=== PATIENT | female | born 1950 | race Asian ===

== ENCOUNTER 2017-07-22 23:50 | Emergency (ER) | payer MEDICAID, MEDICARE ==
[~2017-07-22] VITALS: Ht 142.2 cm; Wt 70.0 kg
[2017-07-23] MEDS ORDERED: SODIUM CHLORIDE 0.9% 1,000ML IVBOLUS ONE (00:30)
[2017-07-23 01:02] LABS: BASOPHILS # (AUTO) 0.06 x10^3/uL (0-0.1); BASOPHILS % (AUTO) 1 % (0-1); EOSINOPHILS # (AUTO) 0.15 x10^3/uL (0-0.4); EOSINOPHILS % (AUTO) 2 % (1-7); LYMPHOCYTES # (AUTO) 2.47 x10^3/uL (1-3.4); LYMPHOCYTES % (AUTO) 30 % (22-44); MD NO; MEAN CORPUSCULAR HEMOGLOBIN 27.6 pg (27.0-34.8); MEAN CORPUSCULAR HGB CONC 32.4 g/dL (32.4-35.8); MEAN PLATELET VOLUME 7.8 fL (7.4-10.4); MONOCYTES # (AUTO) 0.56 x10^3/uL (0.2-0.8); MONOCYTES % (AUTO) 7 % (2-9); NEUTROPHILS # (AUTO) 4.88 x10^3/uL (1.8-6.8); NEUTROPHILS % (AUTO) 60 % (42-75); PLATELET COUNT 278 x10^3/uL (130-400); RED BLOOD COUNT 3.72 x10^6/uL (3.82-5.3)
[2017-07-23 01:13] LABS: ALANINE AMINOTRANSFERASE 18 U/L (12-78); ALBUMIN 3.4 g/dL (3.4-5.0); ANION GAP 8 mmol/L (5-15); CALCIUM 9.4 mg/dL (8.5-10.1); CHLORIDE 95 mmol/L (98-107); CREATININE 1.09 mg/dL (0.55-1.02)
[2017-07-23 01:18] LABS: ALKALINE PHOSPHATASE 138 U/L (45-117); BILIRUBIN,TOTAL 0.2 mg/dL (0.2-1.0); TOTAL PROTEIN 8.8 g/dL (6.4-8.2); TROPONIN I < 0.015 ng/mL (0.000-0.045)
[2017-07-23 01:23] LABS: THYROID STIMULATING HORMONE 0.516 mIU/L (0.358-3.740)
[2017-07-23 01:30] LABS: MICROSCOPIC NOT IND
[2017-07-23 01:33] LABS: CULTURE INDICATED? NO
[2017-07-23 02:20] VITALS: BP 165/71
[2017-07-23] MEDS ORDERED: GLIP10TA13 PO (11:12)
[2017-07-23] MEDS ORDERED: OXYC10TA6 PO (11:12)
[2017-07-23] MEDS ORDERED: LISI1TAB3 PO (11:12)
== END 2017-07-23 02:28 | disposition home or self-care (01) ==
LOC: ED 23:59
DX: R42 Dizziness and giddiness (principal); E11.65 Type 2 diabetes mellitus with hyperglycemia; E78.00 Pure hypercholesterolemia, unspecified; I10 Essential (primary) hypertension
CPT/HCPCS: 36415; 70450; 71045; 80053; 81003; 82962; 84443; 84484; 85025; 93005; 96360; 99285; J7030

== ENCOUNTER 2017-07-23 09:07 | Inpatient (IN) | payer MEDICARE, MEDICAID ==
[~2017-07-23] VITALS: Ht 142.2 cm; Wt 80.1 kg
[2017-07-23] MEDS ORDERED: SODIUM CHLORIDE 0.9% 1,000 ML IV ONE ×2 (10:04→12:05)
[2017-07-23] MEDS ORDERED: PROMETHAZINE 25 MG/ML, 1ML ONE (10:22)
[2017-07-23 10:24] LABS: BASOPHILS # (AUTO) 0.01 x10^3/uL (0-0.1); BASOPHILS % (AUTO) 0 % (0-1); EOSINOPHILS # (AUTO) 0.03 x10^3/uL (0-0.4); EOSINOPHILS % (AUTO) 0 % (1-7); LYMPHOCYTES # (AUTO) 1.92 x10^3/uL (1-3.4); LYMPHOCYTES % (AUTO) 22 % (22-44); MD NO; MEAN CORPUSCULAR HEMOGLOBIN 28.4 pg (27.0-34.8); MEAN CORPUSCULAR HGB CONC 33.5 g/dL (32.4-35.8); MEAN CORPUSCULAR VOLUME 84.8 fL (80-100); MEAN PLATELET VOLUME 7.7 fL (7.4-10.4); MONOCYTES % (AUTO) 5 % (2-9); NEUTROPHILS # (AUTO) 6.34 x10^3/uL (1.8-6.8); NEUTROPHILS % (AUTO) 73 % (42-75); PLATELET COUNT 270 x10^3/uL (130-400); RED BLOOD COUNT 3.65 x10^6/uL (3.82-5.3); RED CELL DISTRIBUTION WIDTH 13.8 % (9.6-15.2)
[2017-07-23] MEDS ORDERED: SODIUM CHLORIDE FLUSH 10ML SYR IVF ONE (10:30)
[2017-07-23] MEDS ORDERED: PROMETHAZINE 25 MG/ML, 1ML IM ONE (10:30)
[2017-07-23] MEDS ORDERED: SODIUM CHLORIDE 0.9% 1,000ML IVBOLUS ONE (10:30)
[2017-07-23 10:32] LABS: ACETONE, SERUM Negative (Negative)
[2017-07-23 10:37] LABS: ALANINE AMINOTRANSFERASE 18 U/L (12-78); ALBUMIN 3.2 g/dL (3.4-5.0); ANION GAP 9 mmol/L (5-15); CALCIUM 9.1 mg/dL (8.5-10.1); CHLORIDE 99 mmol/L (98-107); CREATININE 0.85 mg/dL (0.55-1.02)
[2017-07-23 10:41] LABS: ALKALINE PHOSPHATASE 128 U/L (45-117); BILIRUBIN,TOTAL 0.3 mg/dL (0.2-1.0); TOTAL PROTEIN 8.5 g/dL (6.4-8.2); TROPONIN I < 0.015 ng/mL (0.000-0.045)
[2017-07-23] MEDS ORDERED: ZIPRASIDONE 20 MG INJ IM ONE ×2 (11:05→11:30)
[2017-07-23] MEDS ORDERED: OXYC10TA6 PO (11:12)
[2017-07-23] MEDS ORDERED: LISI1TAB3 PO (11:12)
[2017-07-23] MEDS ORDERED: GLIP10TA13 PO (11:12)
[2017-07-23 11:14] LABS: MICROSCOPIC AUTO
[2017-07-23 11:17] LABS: CULTURE INDICATED? YES
[2017-07-23] MEDS ORDERED: KETOROLAC 30 MG/1 ML IVPush ONE (11:30)
[2017-07-23] MEDS: SODIUM CHLORIDE 0.9% 1,000 ML IV SCH ×2 (12:21→20:57)
[2017-07-23] MEDS ORDERED: LABETALOL 5MG/ML, 20ML IVPush PRN (12:30)
[2017-07-23] MEDS ORDERED: ONDANSETRON 2MG/ML, 2ML IVPush PRN (12:30)
[2017-07-23] MEDS ORDERED: SODIUM CHLORIDE FLUSH 10ML SYR IVF PRN (12:30)
[2017-07-23] MEDS ORDERED: ONDANSETRON ODT 4 MG PO PRN (12:30)
[2017-07-23] MEDS ORDERED: POLYETHYLENE GLYCOL 17 GM PACKET PO PRN (12:30)
[2017-07-23] MEDS: ENOXAPARIN 40 MG/0.4 ML SQ SCH (13:00)
[2017-07-23 13:02] LABS: D-DIMER 0.56 ug/mlFEU (0.00-0.52); INTERNATIONAL NORMALIZED RATIO 0.96 (0.93-1.1)
[2017-07-23 13:17] LABS: FREE T4 (FREE THYROXINE) 1.39 ng/dL (0.76-1.46); THYROID STIMULATING HORMONE 0.319 mIU/L (0.358-3.740)
[2017-07-23 14:58] VITALS: BP 165/83
[2017-07-23] MEDS: LORazepam 0.5MG TABLET PO PRN ×2 (15:17→20:55)
[2017-07-23] MEDS ORDERED: INSULIN LISPRO 100 UNITS/ML, PEN SQ-INSULIN SCH (16:00)
[2017-07-23] MEDS: INSULIN LISPRO 100 UNITS/ML, PEN SQ-INSULIN SCH ×2 (18:00→20:57)
[2017-07-23] MEDS ORDERED: OMNIPAQUE 350 MG/ML, 100ML BOTTLE ONE (18:26)
[2017-07-23] MEDS: ACETAMINOPHEN 325 MG TABLET PO PRN (19:31)
[2017-07-23 20:00] VITALS: BP 133/65
[2017-07-23] MEDS: INSULIN GLARGINE 100 UNITS/ML, PEN SQ-INSULIN SCH ×2 (20:56→20:59)
[2017-07-23] MEDS: OXYcodone IR 5MG TABLET PO PRN (22:37)
[2017-07-24] VITALS (10 sets, daily range): BP systolic 96–150; BP diastolic 56–84
[2017-07-24] MEDS: SODIUM CHLORIDE 0.9% 1,000 ML IV SCH ×2 (04:33→16:39)
[2017-07-24 05:42] LABS: BASOPHILS # (AUTO) 0.03 x10^3/uL (0-0.1); BASOPHILS % (AUTO) 0 % (0-1); EOSINOPHILS # (AUTO) 0.11 x10^3/uL (0-0.4); EOSINOPHILS % (AUTO) 2 % (1-7); LYMPHOCYTES # (AUTO) 2.59 x10^3/uL (1-3.4); LYMPHOCYTES % (AUTO) 36 % (22-44); MD NO; MEAN CORPUSCULAR HEMOGLOBIN 28.1 pg (27.0-34.8); MEAN PLATELET VOLUME 7.5 fL (7.4-10.4); MONOCYTES # (AUTO) 0.47 x10^3/uL (0.2-0.8); MONOCYTES % (AUTO) 6 % (2-9); NEUTROPHILS # (AUTO) 4.09 x10^3/uL (1.8-6.8); NEUTROPHILS % (AUTO) 56 % (42-75); PLATELET COUNT 248 x10^3/uL (130-400); RED BLOOD COUNT 3.45 x10^6/uL (3.82-5.3); RED CELL DISTRIBUTION WIDTH 14.2 % (9.6-15.2)
[2017-07-24 05:52] LABS: ALANINE AMINOTRANSFERASE 18 U/L (12-78); ALKALINE PHOSPHATASE 111 U/L (45-117); CHOL/HDL RATIO 4.2; CHOLESTEROL, TOTAL 161 mg/dL (140-239); CREATININE 0.91 mg/dL (0.55-1.02); HDL CHOL % 24 % (28-40); HDL CHOLESTEROL (DIRECT) 38 mg/dL (40-60); LDL CHOLESTEROL,CALCULATED 88 mg/dL (54-169); LDL/HDL RATIO 2.3 (0.5-3.0); TOTAL PROTEIN 7.6 g/dL (6.4-8.2); TRIGLYCERIDES 175 mg/dL (50-200); VLDL CHOLESTEROL 35 mg/dL (0-25)
[2017-07-24 06:01] LABS: ALBUMIN 2.9 g/dL (3.4-5.0); ANION GAP 9 mmol/L (5-15); CALCIUM 8.8 mg/dL (8.5-10.1); CHLORIDE 107 mmol/L (98-107)
[2017-07-24 06:03] LABS: BILIRUBIN,TOTAL 0.3 mg/dL (0.2-1.0)
[2017-07-24] MEDS ORDERED: MAGNESIUM SULFATE PMX 4GM/100M 100 ML IV ONE (07:30)
[2017-07-24] MEDS: INSULIN LISPRO 100 UNITS/ML, PEN SQ-INSULIN SCH ×4 (08:36→21:12)
[2017-07-24] MEDS: SENNA/DOCUSATE TABLET PO SCH (09:08)
[2017-07-24] MEDS: LISINOPRIL 10 MG TABLET PO SCH (09:08)
[2017-07-24] MEDS: HYDROCHLOROTHIAZIDE 12.5 MG CAPSULE PO SCH (09:08)
[2017-07-24] MEDS: OXYcodone IR 5MG TABLET PO PRN ×2 (10:53→21:10)
[2017-07-24 12:30] LABS: % IRON SATURATION 14 % (20-55); IRON LEVEL 51 mcg/dL (50-170); TOTAL IRON BINDING CAPACITY 364 mcg/dL (250-450)
[2017-07-24] MEDS: ENOXAPARIN 40 MG/0.4 ML SQ SCH (12:43)
[2017-07-24] MEDS: CEFTRIAXONE PMX 2GM/50ML 50 ML IV SCH (12:43)
[2017-07-24] MEDS: DOXYCYCLINE 100MG TABLET PO SCH ×2 (12:44→21:10)
[2017-07-24 12:56] LABS: FOLATE LEVEL > 20.0 ng/mL (3.1-17.5)
[2017-07-24] MEDS: INSULIN GLARGINE 100 UNITS/ML, PEN SQ-INSULIN SCH (21:11)
[2017-07-25] VITALS (7 sets, daily range): BP systolic 111–148; BP diastolic 68–84
[2017-07-25] MEDS: SODIUM CHLORIDE 0.9% 1,000 ML IV SCH ×3 (00:09→16:24)
[2017-07-25] MEDS: ACETAMINOPHEN 325 MG TABLET PO PRN ×2 (00:55→16:21)
[2017-07-25] MEDS: LORazepam 0.5MG TABLET PO PRN ×2 (02:55→21:57)
[2017-07-25 05:49] LABS: BASOPHILS # (AUTO) 0.03 x10^3/uL (0-0.1); BASOPHILS % (AUTO) 0 % (0-1); EOSINOPHILS # (AUTO) 0.24 x10^3/uL (0-0.4); EOSINOPHILS % (AUTO) 3 % (1-7); LYMPHOCYTES # (AUTO) 2.95 x10^3/uL (1-3.4); LYMPHOCYTES % (AUTO) 39 % (22-44); MD NO; MEAN CORPUSCULAR HGB CONC 34.1 g/dL (32.4-35.8); MEAN CORPUSCULAR VOLUME 85.2 fL (80-100); MEAN PLATELET VOLUME 7.4 fL (7.4-10.4); MONOCYTES # (AUTO) 0.52 x10^3/uL (0.2-0.8); MONOCYTES % (AUTO) 7 % (2-9); NEUTROPHILS # (AUTO) 3.84 x10^3/uL (1.8-6.8); NEUTROPHILS % (AUTO) 51 % (42-75); PLATELET COUNT 218 x10^3/uL (130-400); RED BLOOD COUNT 3.19 x10^6/uL (3.82-5.3); RED CELL DISTRIBUTION WIDTH 14.9 % (9.6-15.2)
[2017-07-25 05:59] LABS: ALBUMIN 2.8 g/dL (3.4-5.0); CHLORIDE 108 mmol/L (98-107)
[2017-07-25 06:05] LABS: ALANINE AMINOTRANSFERASE 16 U/L (12-78); ALKALINE PHOSPHATASE 94 U/L (45-117); ANION GAP 6 mmol/L (5-15); BILIRUBIN,TOTAL 0.4 mg/dL (0.2-1.0); CALCIUM 8.5 mg/dL (8.5-10.1); CREATININE 0.79 mg/dL (0.55-1.02); TOTAL PROTEIN 7.2 g/dL (6.4-8.2)
[2017-07-25] MEDS ORDERED: IRON SUCROSE COMPLEX 100MG/5ML IV ONE (08:30)
[2017-07-25] MEDS: INSULIN LISPRO 100 UNITS/ML, PEN SQ-INSULIN SCH ×4 (09:05→20:14)
[2017-07-25] MEDS: INSULIN GLARGINE 100 UNITS/ML, PEN SQ-INSULIN SCH (09:05)
[2017-07-25] MEDS: HYDROCHLOROTHIAZIDE 12.5 MG CAPSULE PO SCH (09:18)
[2017-07-25] MEDS: DOXYCYCLINE 100MG TABLET PO SCH ×2 (09:18→20:13)
[2017-07-25] MEDS: LISINOPRIL 10 MG TABLET PO SCH (09:18)
[2017-07-25] MEDS: SENNA/DOCUSATE TABLET PO SCH (09:19)
[2017-07-25] MEDS: OXYcodone IR 5MG TABLET PO PRN (10:50)
[2017-07-25] MEDS: CEFTRIAXONE PMX 2GM/50ML 50 ML IV SCH (10:50)
[2017-07-25] MEDS: ENOXAPARIN 40 MG/0.4 ML SQ SCH (14:15)
[2017-07-25] MEDS ORDERED: INSULIN GLARGINE 100 UNITS/ML, PEN SQ-INSULIN SCH (21:00)
[2017-07-26] MEDS: SODIUM CHLORIDE 0.9% 1,000 ML IV SCH (00:11)
[2017-07-26] MEDS: OXYcodone IR 5MG TABLET PO PRN ×2 (00:11→09:24)
[2017-07-26 00:15] VITALS: BP 131/79
[2017-07-26] MEDS ORDERED: INSU100I13 SQ-INSULIN ×2 (06:21)
[2017-07-26] MEDS ORDERED: CEFD300C37 PO (06:21)
[2017-07-26] MEDS ORDERED: DOXY100T PO (06:22)
[2017-07-26 07:06] VITALS: BP 126/78
[2017-07-26 07:31] LABS: BASOPHILS % (AUTO) 0 % (0-1); EOSINOPHILS # (AUTO) 0.18 x10^3/uL (0-0.4); EOSINOPHILS % (AUTO) 3 % (1-7); LYMPHOCYTES % (AUTO) 34 % (22-44); MD NO; MEAN CORPUSCULAR HEMOGLOBIN 27.5 pg (27.0-34.8); MEAN CORPUSCULAR HGB CONC 32.4 g/dL (32.4-35.8); MEAN CORPUSCULAR VOLUME 84.7 fL (80-100); MEAN PLATELET VOLUME 7.3 fL (7.4-10.4); MONOCYTES # (AUTO) 0.43 x10^3/uL (0.2-0.8); MONOCYTES % (AUTO) 6 % (2-9); NEUTROPHILS # (AUTO) 4.21 x10^3/uL (1.8-6.8); NEUTROPHILS % (AUTO) 58 % (42-75); PLATELET COUNT 227 x10^3/uL (130-400); RED BLOOD COUNT 3.31 x10^6/uL (3.82-5.3); RED CELL DISTRIBUTION WIDTH 14.4 % (9.6-15.2)
[2017-07-26 07:40] LABS: ALBUMIN 2.8 g/dL (3.4-5.0); ANION GAP 9 mmol/L (5-15); CALCIUM 8.5 mg/dL (8.5-10.1); CHLORIDE 106 mmol/L (98-107); CREATININE 0.78 mg/dL (0.55-1.02)
[2017-07-26] MEDS: INSULIN LISPRO 100 UNITS/ML, PEN SQ-INSULIN SCH ×2 (08:00→12:13)
[2017-07-26] MEDS: DOXYCYCLINE 100MG TABLET PO SCH (09:09)
[2017-07-26] MEDS: HYDROCHLOROTHIAZIDE 12.5 MG CAPSULE PO SCH (09:09)
[2017-07-26] MEDS: LISINOPRIL 10 MG TABLET PO SCH (09:10)
[2017-07-26] MEDS: SENNA/DOCUSATE TABLET PO SCH (09:10)
[2017-07-26] MEDS: INSULIN GLARGINE 100 UNITS/ML, PEN SQ-INSULIN SCH (09:16)
[2017-07-26] MEDS: LORazepam 0.5MG TABLET PO PRN (09:24)
[2017-07-26] MEDS ORDERED: MAGNESIUM SULF. PMX 20GM/500ML 100 ML IV ONE ×2 (10:00→10:08)
[2017-07-26] MEDS: CEFTRIAXONE PMX 2GM/50ML 50 ML IV SCH (11:18)
[2017-07-26] MEDS: ENOXAPARIN 40 MG/0.4 ML SQ SCH (12:13)
[2017-07-26 13:17] VITALS: BP 123/74
== END 2017-07-26 16:10 | disposition home or self-care (01) | DRG 637 ==
LOC: ED 10:36 → 4WST 12:21
PROVIDERS: ADMIT Hospitalist; ATTEND Hospitalist
DX: E11.65 Type 2 diabetes mellitus with hyperglycemia (principal); E43 Unspecified severe protein-calorie malnutrition; E87.1 Hypo-osmolality and hyponatremia; E83.42 Hypomagnesemia; I27.20 Pulmonary hypertension, unspecified; D63.8 Anemia in other chronic diseases classified elsewhere; E03.9 Hypothyroidism, unspecified; E86.0 Dehydration; I10 Essential (primary) hypertension; Z68.39 Body mass index [BMI] 39.0-39.9, adult; Z59.0 Homelessness
CPT/HCPCS: 36415; 71045; 71275; 80048; 80053; 80061; 81001; 82010; 82040; 82607; 82728; 82746; 82800; 82962; 83036; 83540; 83550; 83690; 83735; 83880; 84100; 84439; 84443; 84484; 85025; 85379; 85610; 87040; 87086; 93005; 93306; 96372; J0696; J1650; J1756; J2550; J3486; Q0162; Q9967; J1815; J3475; J7030

== ENCOUNTER 2018-07-09 09:34 | Emergency (ER) | payer MEDICAID, MEDICARE ==
[~2018-07-09] VITALS: Ht 144.8 cm; Wt 75.9 kg
[~2018-07-09 09:34] MED LIST: CEFD300C37 PO; DOXY100T PO; GLIP10TA13 PO; INSU100I13 SQ-INSULIN; LISI1TAB3 PO; OXYC10TA6 PO
--- NOTE | 2018-07-09 09:51 | NUR ---
PT BIB [facility] FROM HOME WITH C/O CHEST PRESSURE ONSET 6AM, [place], 8/10. PER EMS, PT WAS ON THE PHONE WITH SON, VERY EMOTIONAL WHEN THEY ARRIVED. PT HAS HX OF IDDM, BS WAS 150. 12 LEAD PER EMS UNREMARKABLE. PT WAS MEDICATED WITH ASA, AND .4MG NITRO STUNT PERSON, WITH CHEST PAIN DECREASING TO 6/10. PT ARRIVES TO ED A&OX4, CALM, C/O HEADACHE. ERP AT BS IMMEDIATELY. PT PLACED ON ALL MONITORS & POC RV'WD WITH HER. EKG DONE AT BS.
[2018-07-09] MEDS ORDERED: LORazepam 2 MG/ML, 1ML IVPush ONE (10:00)
[2018-07-09] MEDS ORDERED: SODIUM CHLORIDE FLUSH 10ML SYR IVF ONE (10:00)
--- NOTE | 2018-07-09 10:04 | NUR ---
PT ALSO STATES SHE IS CURRENTLY TAKING ABX FOR BLADDER INFECTION. AMBULATED TO BR AT THIS TIME WITHOUT DIFFICULTY.
[2018-07-09 10:13] LABS: BASOPHILS # (AUTO) 0.03 x10^3/uL (0-0.1); BASOPHILS % (AUTO) 0 % (0-1); EOSINOPHILS # (AUTO) 0.05 x10^3/uL (0-0.4); EOSINOPHILS % (AUTO) 1 % (1-7); LYMPHOCYTES # (AUTO) 1.19 x10^3/uL (1-3.4); LYMPHOCYTES % (AUTO) 12 % (22-44); MD NO; MEAN CORPUSCULAR HEMOGLOBIN 29.2 pg (27.0-34.8); MEAN CORPUSCULAR HGB CONC 33.4 g/dL (32.4-35.8); MEAN CORPUSCULAR VOLUME 87.6 fL (80-100); MEAN PLATELET VOLUME 7.4 fL (7.4-10.4); MONOCYTES # (AUTO) 0.39 x10^3/uL (0.2-0.8); MONOCYTES % (AUTO) 4 % (2-9); NEUTROPHILS # (AUTO) 8.19 x10^3/uL (1.8-6.8); NEUTROPHILS % (AUTO) 83 % (42-75); PLATELET COUNT 273 x10^3/uL (130-400); RED BLOOD COUNT 3.83 x10^6/uL (3.82-5.3); RED CELL DISTRIBUTION WIDTH 13.6 % (9.6-15.2)
[2018-07-09 10:21] LABS: ALBUMIN 3.4 g/dL (3.4-5.0); ANION GAP 9 mmol/L (5-15); CALCIUM 9.4 mg/dL (8.5-10.1); CHLORIDE 101 mmol/L (98-107); CREATININE 1.01 mg/dL (0.55-1.02)
[2018-07-09 10:24] LABS: TROPONIN I < 0.015 ng/mL (0.000-0.045)
[2018-07-09] MEDS ORDERED: LORazepam 2 MG/ML, 1ML ONE (10:29)
--- NOTE | 2018-07-09 10:45 | NUR ---
PT STILL ANXIOUS, CRYING AT TIMES. MEDICATED WITH ATIVAN PER ORDERS. FRIEND AT BS. RV'WD POC WITH PT.
--- NOTE | 2018-07-09 11:35 | NUR ---
PT STATES, "I FEEL A LOT BETTER." D/C ORDERS RC'VD.
[2018-07-09 11:36] VITALS: BP 116/63
--- NOTE | 2018-07-09 12:08 | NUR ---
D/C INSTRUCTIONS, MEDS & F/U APPT RV'WD WITH PT, SHE VERBALIZES UNDERSTANDING. ASSISTED OUT OF ED VIA WC WITH FRIEND. CAB VOUCHER PROVIDED.
== END 2018-07-09 12:12 | disposition home or self-care (01) ==
LOC: ED 10:24
DX: R07.2 Precordial pain (principal); R51 Headache; R06.02 Shortness of breath; I10 Essential (primary) hypertension; E11.9 Type 2 diabetes mellitus without complications
CPT/HCPCS: 36415; 71045; 80048; 82040; 84484; 85025; 93005; 96374; 99284; J2060